=== PATIENT | male | born 1945 | race Caucasian/White ===

== ENCOUNTER 2020-05-12 08:04 | Outpatient (CLI) | payer OTHER, SELFPAY ==
--- NOTE | ~2020-05-12 | US_ITS ---
EXAMINATION: US right upper quadrant EXAM DATE: 05/12/2020 08:58 INDICATION: Abdominal pain. Pancreatitis. TECHNIQUE: Multiple grayscale and Doppler images of the abdomen right upper quadrant were obtained (b y a technologist who performed the scan) and subsequently reviewed. Comparison is made to prior exami nation from 06/27/2012. FINDINGS: Pancreas poorly visualized. Please note uncomplicated pancreatitis typically does not have ultrasound findings. The liver has normal echogenicity and contour. There are no focal liver lesions identifi ed. There is no evidence of intrahepatic biliary duct dilation. Portal venous flow was seen in the hepatopedal, normal direction and has normal Doppler waveform. No right-sided hydronephrosis. Common bile duct measures 4 mm, which is normal. The gallbladder wall is normal in thickness, with ex pected amount of distention. No sonographic evidence of pericholecystic fluid. There is no cholelit hiases. Technologist performing exam reports patient did not demonstrate sonographic Funes's sign. Please note that this sign is less reliable in patients who have received pain medication. IMPRESSION: 1. Unremarkable abdominal ultrasound exam. Reviewed, dictated and finalized at location A.
== END 2020-05-12 08:05 | disposition home or self-care (01) ==
LOC: ANHIMG 08:05
PROVIDERS: PCP Family Medicine; Visit Provider Physician Assistant
DX: R10.9 Unspecified abdominal pain (principal); R11.14 Bilious vomiting
CPT/HCPCS: 76705

== ENCOUNTER 2022-01-27 01:11 | Day surgery (SDC) | payer OTHER, SELFPAY ==
--- NOTE | 2022-01-26 14:46 | WPDANESEPPF ---
Anes - Initial Pre Proc Eval Procedure: Operation Date: 01/27/22 08:00 Proposed Procedures p Esophagogastroduodenoscopy - Noah Ruelas MD Date/Time: 01/26/22 14:46 Surgeon: Noah Ruelas MD Pre Op Diagnosis: vomiting Patient Data Age: 76 Gender: M Height: 1.8 m Weight: 97.8 kg Allergies Allergy/AdvReac Type Severity Reaction Status Date / Time lisinopril AdvReac Mild swelling Verified 01/27/22 06:55 ankles simvastatin AdvReac Mild swelling Verified 01/27/22 06:55 ankles Home Medications Medication Instructions Recorded Confirmed Type metoprolol succinate 25 mg 25 mg PO DAILY 08/01/19 01/13/22 History tablet,extended release 24 hr (Toprol XL) rosuvastatin 20 mg tablet (Crestor) 20 mg PO DAILY 08/01/19 01/13/22 History aspirin 81 mg tablet,delayed 243 mg PO DAILY 12/25/20 01/13/22 History release (Adult Low Dose Aspirin) irbesartan 300 mg tablet 300 mg PO DAILY #90 tabs 10/09/21 01/13/22 Rx levothyroxine 75 mcg tablet 75 mcg PO DAILY #90 tabs 10/09/21 01/13/22 Rx (Synthroid) triamcinolone acetonide 0.5 % 1 applic topical DAILY #15 grams 12/16/21 01/13/22 Rx topical cream Patient hx anesthesia problems: none Family hx anesthesia problems: none Results Review: All pre-operative results and documents have been reviewed as part of the pre-operative evaluation. 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, with stage 1 through stage 4 chronic kidney disease, or unspecified chronic kidney disease PVD (peripheral vascular disease) Surgical History Surgical History (Updated 01/26/22 @ 14:48 by Amrik Ramirez MD) Hx of CABG Family History Family History Father Patient's father is in good health, Onset Age: 74 Sibling Patient's sister is in good health, Onset Age: 65 Patient's brother is in good health, Onset Age: 67 Mother Patient's mother is Other Family history of cardiovascular disease Hypertension Social History Social History (Updated 12/16/21 @ 15:03 by Ginna Price) Social History: Smoking status: Never smoker Second hand tobacco smoke exposure: No Alcohol intake: current Drinks per week: 1 Alcohol use details: 6oz whiskey daily Substance use: never Substance use type: does not use Living arrangements: with family Gender identity (if verbalized by the patient): Male Sexual Orientation (if Verbalized by the Patient): Straight or Heterosexual Spiritual care concerns: No Anes - Eval Final PreProcedure Day of Procedure 01/26/22 14:46 Patient weight: obese Heart: regular rate and rhythm Lungs: clear to auscultation and normal air movement Airway: Mallampati scale class II Neurological: alert and oriented Last oral intake: >/= 8 hours ASA classification: IV Emergent: no Anesthetic plan: proceed Anesthesia type and monitoring: general GIVS Results Review: All pre-operative results and documents have been reviewed as part of the pre-operative evaluation. Informed Consent: The patient's anesthetic plan and its attendant risks and benefits were discussed with the patient/family/POA. Questions were solicited and answers provided to the satisfaction of the patient/family/POA.
[2022-01-27 06:57] VITALS: BP 162/71; PULSE 62; RESP 17; TEMP 36.6; O2SAT 99
[2022-01-27] MEDS: LACTATED RINGERS 1,000 ML 150 ML IV CONT (07:15)
--- NOTE | 2022-01-27 07:28 | PM.HPGS ---
History of Present Illness History of Present Illness Consent: Risks, benefits, and alternatives have been discussed and questions answered. Patient agrees to proceed with procedure. Chief complaint: vomiting Narrative: Casey Frederick is a 76 year old male was referred for investigation of recurrent nausea vomiting. He refers to as a cyclic vomiting. He states that he will be eating and get nauseated. He will need to get up, walk around , and he may regurgitate or vomit something. Then he can go e Back to eating. this mostly happens when he is eating bread or meat. His daughter wondered if it might be pancreatitis coming back because he has been having a good great deal of back pain for which he takes ibuprofen from time to time; he had acute pancreatitis about 10 years ago. 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, with stage 1 through stage 4 chronic kidney disease, or unspecified chronic kidney disease PVD (peripheral vascular disease) Surgical History Surgical History Hx of CABG Family History Family History Father Patient's father is in good health, Onset Age: 74 Sibling Patient's sister is in good health, Onset Age: 65 Patient's brother is in good health, Onset Age: 67 Mother Patient's mother is Other Family history of cardiovascular disease Hypertension Social History Social History Social History: Smoking status: Never smoker Second hand tobacco smoke exposure: No Alcohol intake: current Drinks per week: 1 Alcohol use details: 6oz whiskey daily Substance use: never Substance use type: does not use Living arrangements: with family Gender identity (if verbalized by the patient): Male Sexual Orientation (if Verbalized by the Patient): Straight or Heterosexual Spiritual care concerns: No Meds Home Medications and Allergies Home Medications Medication Instructions Recorded Confirmed Type metoprolol succinate 25 mg 25 mg PO DAILY 08/01/19 01/13/22 History tablet,extended release 24 hr (Toprol XL) rosuvastatin 20 mg tablet (Crestor) 20 mg PO DAILY 08/01/19 01/13/22 History aspirin 81 mg tablet,delayed 243 mg PO DAILY 12/25/20 01/13/22 History release (Adult Low Dose Aspirin) irbesartan 300 mg tablet 300 mg PO DAILY #90 tabs 10/09/21 01/13/22 Rx levothyroxine 75 mcg tablet 75 mcg PO DAILY #90 tabs 10/09/21 01/13/22 Rx (Synthroid) triamcinolone acetonide 0.5 % 1 applic topical DAILY #15 grams 12/16/21 01/13/22 Rx topical cream Allergies Allergy/AdvReac Type Severity Reaction Status Date / Time lisinopril AdvReac Mild swelling Verified 01/27/22 06:55 ankles simvastatin AdvReac Mild swelling Verified 01/27/22 06:55 ankles Vital Signs Vital Signs - 24 hr 01/27/22 06:57 Temperature 36.6 C Pulse Rate 62 Respiratory Rate 17 Blood Pressure 162/71 H Pulse Oximetry 99 Oxygen Delivery Room Air Exam Const: General: alert Orientation/consciousness: patient oriented x3 Resp: Auscultation: clear to auscultation bilaterally Cardio: Rhythm: regular rhythm GI: GI Palp: Yes Soft to palpation and No Tenderness to palpation present (GI) Neuro: General: patient orient
[2022-01-27] MEDS: BENZOCAINE (*SP) 60 ML SPRAY CAN (HURRICAINE) 1 SPRAY MUCOUS MEM (08:01)
[2022-01-27 08:10] VITALS: BP 90/41; PULSE 55; RESP 18; O2SAT 96
[2022-01-27 08:20] VITALS: BP 99/46; PULSE 55; RESP 16; O2SAT 97
[2022-01-27 08:30] VITALS: BP 120/69; PULSE 51; RESP 16; O2SAT 95
== END 2022-01-27 08:45 | disposition home or self-care (01) ==
PROVIDERS: PCP Family Medicine; Visit Provider Internal Medicine Gastroenterology
PROC: 0DJ08ZZ Inspection of Upper Intestinal Tract, Via Natural or Artificial Opening Endoscopic (ICD-10-PCS; CPT 43235; principal; 2022-01-27 08:00)
DX: K22.2 Esophageal obstruction (principal); K21.00 Gastro-esophageal reflux disease with esophagitis, without bleeding; K44.9 Diaphragmatic hernia without obstruction or gangrene; I71.4 Abdominal aortic aneurysm, without rupture; E03.9 Hypothyroidism, unspecified; I12.9 Hypertensive chronic kidney disease with stage 1 through stage 4 chronic kidney disease, or unspecified chronic kidney disease; N18.30 Chronic kidney disease, stage 3 unspecified; I25.10 Atherosclerotic heart disease of native coronary artery without angina pectoris; I73.9 Peripheral vascular disease, unspecified; Z86.73 Personal history of transient ischemic attack (TIA), and cerebral infarction without residual deficits; Z95.1 Presence of aortocoronary bypass graft; Z79.82 Long term (current) use of aspirin; E66.9 Obesity, unspecified; Z68.29 Body mass index [BMI] 29.0-29.9, adult
CPT/HCPCS: 43249; 88305; C1726; J2704; J7120

== ENCOUNTER 2022-04-07 00:36 | Day surgery (SDC) | payer OTHER, SELFPAY ==
[2022-03-29 11:29] VITALS: BMI 28.6
--- NOTE | 2022-04-06 17:26 | PM.HPGS ---
History of Present Illness History of Present Illness Consent: Risks, benefits, and alternatives have been discussed and questions answered. Patient agrees to proceed with procedure. Chief complaint: esophagitis, esophageal stricture Narrative: Casey Frederick is a 76 year old male Who few months ago was found have grade 4 esophagitis and a high-grade stricture which could only be dilated up to 13.5 mm at the time. 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, with stage 1 through stage 4 chronic kidney disease, or unspecified chronic kidney disease PVD (peripheral vascular disease) Surgical History Surgical History Hx of CABG Family History Family History Father Patient's father is in good health, Onset Age: 74 Sibling Patient's sister is in good health, Onset Age: 65 Patient's brother is in good health, Onset Age: 67 Mother Patient's mother is Other Family history of cardiovascular disease Hypertension Social History Social History Social History: Smoking status: Never smoker Second hand tobacco smoke exposure: No Alcohol intake: former Drinks per week: 1 Alcohol use details: previously drank whiskey daily, recently stopped Substance use: never Substance use type: does not use Living arrangements: with family Gender identity (if verbalized by the patient): Male Sexual Orientation (if Verbalized by the Patient): Straight or Heterosexual Spiritual care concerns: No Meds Home Medications and Allergies Home Medications Medication Instructions Recorded Confirmed Type metoprolol succinate 25 mg 25 mg PO DAILY 08/01/19 04/07/22 History tablet,extended release 24 hr (Toprol XL) rosuvastatin 20 mg tablet (Crestor) 20 mg PO DAILY 08/01/19 04/07/22 History aspirin 81 mg tablet,delayed 81 mg PO DAILY 12/25/20 04/07/22 History release (Adult Low Dose Aspirin) pantoprazole 40 mg tablet,delayed 40 mg PO QAM #30 tabs 01/27/22 04/07/22 Rx release levothyroxine 75 mcg tablet 75 mcg PO DAILY #90 tabs 03/29/22 04/07/22 Rx (Synthroid) irbesartan 300 mg tablet See Rx Instructions .Route 03/31/22 04/07/22 Rx .COMPLEX #90 tabs Allergies Allergy/AdvReac Type Severity Reaction Status Date / Time lisinopril AdvReac Mild swelling Verified 04/07/22 08:51 ankles simvastatin AdvReac Mild swelling Verified 04/07/22 08:51 ankles Exam Const: General: alert Orientation/consciousness: patient oriented x3 Resp: Auscultation: clear to auscultation bilaterally Cardio: Rhythm: regular rhythm GI: GI Palp: Yes Soft to palpation and No Tenderness to palpation present (GI) Neuro: General: patient oriented x3 Assessment and Plan Assessment and plan (1) Esophageal stricture: Code(s): K22.2 - Esophageal obstruction Status: Acute Assessment and Plan: EGD with possible biopsy or dilatation or cautery.
[2022-04-07 08:53] VITALS: BP 165/85; PULSE 48; RESP 20; TEMP 36.5; O2SAT 100
[2022-04-07] MEDS: LACTATED RINGERS 1,000 ML 150 ML IV CONT (09:03)
--- NOTE | 2022-04-07 09:41 | WPDANESEPPF ---
Anes - Initial Pre Proc Eval Procedure: Operation Date: 04/07/22 10:00 Proposed Procedures p Esophagogastroduodenoscopy - Noah Ruelas MD Date/Time: 04/07/22 09:41 Surgeon: Noah Ruelas MD Pre Op Diagnosis: esophagitis, esophageal stricture Patient Data Age: 76 Gender: M Height: 1.8 m Weight: 94 kg Last Vital Signs Temp 97.7 F 04/07/22 08:53 Pulse 48 L 04/07/22 08:53 Resp 20 04/07/22 08:53 BP 165/85 H 04/07/22 08:53 Pulse Ox 100 04/07/22 08:53 O2 Del Method Room Air 04/07/22 08:53 Allergies Allergy/AdvReac Type Severity Reaction Status Date / Time lisinopril AdvReac Mild swelling Verified 04/07/22 08:51 ankles simvastatin AdvReac Mild swelling Verified 04/07/22 08:51 ankles Home Medications Medication Instructions Recorded Confirmed Type metoprolol succinate 25 mg 25 mg PO DAILY 08/01/19 04/07/22 History tablet,extended release 24 hr (Toprol XL) rosuvastatin 20 mg tablet (Crestor) 20 mg PO DAILY 08/01/19 04/07/22 History aspirin 81 mg tablet,delayed 81 mg PO DAILY 12/25/20 04/07/22 History release (Adult Low Dose Aspirin) pantoprazole 40 mg tablet,delayed 40 mg PO QAM #30 tabs 01/27/22 04/07/22 Rx release levothyroxine 75 mcg tablet 75 mcg PO DAILY #90 tabs 03/29/22 04/07/22 Rx (Synthroid) irbesartan 300 mg tablet See Rx Instructions .Route 03/31/22 04/07/22 Rx .COMPLEX #90 tabs Patient hx anesthesia problems: none Family hx anesthesia problems: none Results Review: All pre-operative results and documents have been reviewed as part of the pre-operative evaluation. 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, with stage 1 through stage 4 chronic kidney disease, or unspecified chronic kidney disease PVD (peripheral vascular disease) Surgical History Surgical History Hx of CABG Family History Family History Father Patient's father is in good health, Onset Age: 74 Sibling Patient's sister is in good health, Onset Age: 65 Patient's brother is in good health, Onset Age: 67 Mother Patient's mother is Other Family history of cardiovascular disease Hypertension Social History Social History Social History: Smoking status: Never smoker Second hand tobacco smoke exposure: No Alcohol intake: former Drinks per week: 1 Alcohol use details: previously drank whiskey daily, recently stopped Substance use: never Substance use type: does not use Living arrangements: with family Gender identity (if verbalized by the patient): Male Sexual Orientation (if Verbalized by the Patient): Straight or Heterosexual Spiritual care concerns: No Anes - Eval Final PreProcedure Day of Procedure 04/07/22 09:41 Patient weight: normal Heart: regular rate and rhythm Lungs: clear to auscultation Airway: Mallampati scale class II Neurological: alert and oriented Last oral intake: >/= 8 hours ASA classification: III Emergent: no Anesthetic plan: proceed Anesthesia type and monitoring: general GIVS and standard monitoring Results Review: All pre-operative results and documents have been reviewed as part of the pre-operative evaluation. Informed Consent: The patient's anesthetic plan and its attendant risks and benefits were discussed with the patient/family/POADonell Mooney
[2022-04-07 10:05] VITALS: BP 126/68; PULSE 45; RESP 15; O2SAT 100
[2022-04-07 10:15] VITALS: BP 125/67; PULSE 47; RESP 17; O2SAT 99
[2022-04-07 10:25] VITALS: BP 143/73; PULSE 47; RESP 17; O2SAT 99
== END 2022-04-07 10:44 | disposition home or self-care (01) ==
PROVIDERS: PCP Family Medicine; Visit Provider Internal Medicine Gastroenterology
PROC: 0DJ08ZZ Inspection of Upper Intestinal Tract, Via Natural or Artificial Opening Endoscopic (ICD-10-PCS; CPT 43235; principal; 2022-04-07 10:00)
DX: R13.19 Other dysphagia (principal); K22.2 Esophageal obstruction; K44.9 Diaphragmatic hernia without obstruction or gangrene; K20.90 Esophagitis, unspecified without bleeding; E03.9 Hypothyroidism, unspecified; Z79.82 Long term (current) use of aspirin; I71.4 Abdominal aortic aneurysm, without rupture; Z95.1 Presence of aortocoronary bypass graft; I25.10 Atherosclerotic heart disease of native coronary artery without angina pectoris; Z86.73 Personal history of transient ischemic attack (TIA), and cerebral infarction without residual deficits; I73.9 Peripheral vascular disease, unspecified; I12.9 Hypertensive chronic kidney disease with stage 1 through stage 4 chronic kidney disease, or unspecified chronic kidney disease; N18.31 Chronic kidney disease, stage 3a; E03.8 Other specified hypothyroidism
CPT/HCPCS: 43239; C1726; J2001; J2704; J7120

== ENCOUNTER 2023-03-18 03:45 | Day surgery (SDC) | payer OTHER, SELFPAY ==
--- NOTE | 2023-03-17 17:36 | PM.HPGS ---
History of Present Illness History of Present Illness Consent: Risks, benefits, and alternatives have been discussed and questions answered. Patient agrees to proceed with procedure. Chief complaint: neoplasm screening Narrative: Casey Frederick is a 77 year old male Who was referred for colon cancer screening. He had an adenomatous polyp removed about 6 years ago. 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, with stage 1 through stage 4 chronic kidney disease, or unspecified chronic kidney disease PVD (peripheral vascular disease) Surgical History Surgical History Hx of CABG Family History Family History Father Patient's father is in good health, Onset Age: 74 Sibling Patient's sister is in good health, Onset Age: 65 Patient's brother is in good health, Onset Age: 67 Mother Patient's mother is Other Family history of cardiovascular disease Hypertension Social History Social History Social History: Smoking status: Never smoker Second hand tobacco smoke exposure: No Alcohol intake: current Drinks per week: 7 Alcohol use details: SHOTS FOR SLEEP Substance use: never Substance use type: does not use Living arrangements: with family Occupation/Education: retired Gender identity (if verbalized by the patient): Male Sexual Orientation (if Verbalized by the Patient): Straight or Heterosexual Spiritual care concerns: No Meds Home Medications and Allergies Home Medications Medication Instructions Recorded Confirmed Type metoprolol succinate 25 mg 25 mg PO DAILY 08/01/19 03/09/23 History tablet,extended release 24 hr (Toprol XL) aspirin 81 mg tablet,delayed 81 mg PO DAILY 12/25/20 03/09/23 History release (Adult Low Dose Aspirin) epinephrine 0.3 mg/0.3 mL 0.3 mg (0.3 mL) IM ONCE PRN 04/20/22 03/09/23 Rx injection, auto-injector (EpiPen anaphylaxis #2 ea 2-Nabeel) pantoprazole 40 mg tablet,delayed 40 mg PO QAM #90 tabs 07/26/22 03/09/23 Rx release levothyroxine 75 mcg tablet 75 mcg PO DAILY #90 tabs 10/06/22 03/09/23 Rx (Synthroid) irbesartan 300 mg tablet See Rx Instructions .Route 12/22/22 03/09/23 Rx .COMPLEX #90 tabs hydrochlorothiazide 12.5 mg tablet 12.5 mg PO DAILY #30 tabs 01/06/23 03/09/23 Rx Pomegranate 1 cap PO DAILY 03/09/23 03/09/23 History Vinpocetine 10 mg PO DAILY 03/09/23 03/09/23 History cholecalciferol (vitamin D3) 25 25 mcg PO DAILY 03/09/23 03/09/23 History mcg (1,000 unit) capsule (Vitamin D3) coQ10 (ubiquinol) 100 mg capsule 100 mg PO DAILY 03/09/23 03/09/23 History magnesium 100 mg capsule 100 mg PO DAILY 03/09/23 03/09/23 History melatonin 3 mg tablet 6 mg PO HS 03/09/23 03/09/23 History taurine 1,000 mg capsule 1,000 mg PO DAILY 03/09/23 03/09/23 History turmeric root extract 1,053 mg 1,076 mg PO ONCE 03/09/23 03/09/23 History tablet vitamin B complex 1 cap PO DAILY 03/09/23 03/09/23 History vitamin K2 45 mcg capsule 45 mcg PO DAILY 03/09/23 03/09/23 History Allergies Allergy/AdvReac Type Severity Reaction Status Date / Time lisinopril AdvReac Mild swelling Verified 03/09/23 09:03 ankles simvastatin AdvReac Mild swelling Verified 03/09/23 09:03 an
[2023-03-18 08:03] VITALS: BP 130/82; PULSE 65; RESP 18; TEMP 36.6; O2SAT 100
[2023-03-18] MEDS: LACTATED RINGERS 1,000 ML 150 ML IV CONT (08:30)
--- NOTE | 2023-03-18 08:43 | WPDANESEPPF ---
Anes - Initial Pre Proc Eval Procedure: Operation Date: 03/18/23 09:00 Proposed Procedures p Screening Colonoscopy - Noah Ruelas MD Date/Time: 03/18/23 08:43 Surgeon: Noah Ruelas MD Pre Op Diagnosis: neoplasm screening Patient Data Age: 77 Gender: M Height: 1.8 m Weight: 98.3 kg Last Vital Signs Temp 97.9 F 03/18/23 08:03 Pulse 65 03/18/23 08:03 Resp 18 03/18/23 08:03 BP 130/82 03/18/23 08:03 Pulse Ox 100 03/18/23 08:03 O2 Del Method Room Air 03/18/23 08:03 Allergies Allergy/AdvReac Type Severity Reaction Status Date / Time lisinopril AdvReac Mild swelling Verified 03/18/23 08:32 ankles simvastatin AdvReac Mild swelling Verified 03/18/23 08:32 ankles amlodipine AdvReac Swelling Verified 03/18/23 08:32 Home Medications Medication Instructions Recorded Confirmed Type metoprolol succinate 25 mg 25 mg PO DAILY 08/01/19 03/18/23 History tablet,extended release 24 hr (Toprol XL) aspirin 81 mg tablet,delayed 81 mg PO DAILY 12/25/20 03/18/23 History release (Adult Low Dose Aspirin) epinephrine 0.3 mg/0.3 mL 0.3 mg (0.3 mL) IM ONCE PRN 04/20/22 03/18/23 Rx injection, auto-injector (EpiPen anaphylaxis #2 ea 2-Nabeel) pantoprazole 40 mg tablet,delayed 40 mg PO QAM #90 tabs 07/26/22 03/18/23 Rx release levothyroxine 75 mcg tablet 75 mcg PO DAILY #90 tabs 10/06/22 03/18/23 Rx (Synthroid) irbesartan 300 mg tablet See Rx Instructions .Route 12/22/22 03/18/23 Rx .COMPLEX #90 tabs hydrochlorothiazide 12.5 mg tablet 12.5 mg PO DAILY #30 tabs 01/06/23 03/18/23 Rx Pomegranate 1 cap PO DAILY 03/09/23 03/18/23 History Vinpocetine 10 mg PO DAILY 03/09/23 03/18/23 History cholecalciferol (vitamin D3) 25 25 mcg PO DAILY 03/09/23 03/18/23 History mcg (1,000 unit) capsule (Vitamin D3) coQ10 (ubiquinol) 100 mg capsule 100 mg PO DAILY 03/09/23 03/18/23 History magnesium 100 mg capsule 100 mg PO DAILY 03/09/23 03/18/23 History melatonin 3 mg tablet 6 mg PO HS 03/09/23 03/18/23 History taurine 1,000 mg capsule 1,000 mg PO DAILY 03/09/23 03/18/23 History turmeric root extract 1,053 mg 1,076 mg PO ONCE 03/09/23 03/18/23 History tablet vitamin B complex 1 cap PO DAILY 03/09/23 03/18/23 History vitamin K2 45 mcg capsule 45 mcg PO DAILY 03/09/23 03/18/23 History Patient hx anesthesia problems: none Family hx anesthesia problems: none Results Review: All pre-operative results and documents have been reviewed as part of the pre-operative evaluation. [facility] Past Medical History Medical History Abdominal aortic aneurysm (AAA) without rupture Acquired hypothyroidism Atherosclerosis of [place] coronary artery of [place] heart without angina pectoris Chronic kidney disease, stage 3a Chronic kidney disease, stage III (moderate) H/O TIA (transient ischemic attack) and stroke History of colon polyps History of vertebral artery stenosis Hypertensive heart and chronic kidney disease without heart failure, with stage 1 through stage 4 chronic kidney disease, or unspecified chronic kidney disease PVD (peripheral vascular disease) Surgical History Surgical History Hx of CABG Family History Family History Father Patient's father is in good health, Onset Age: 74 Sibling Patient's sister is in good health, Onset Age: 65 Patient's brother is in good health, Onset Age: 67 Mother Patient's mother is Other Family history of cardiovascular disease Hypertension Social History Social History Social History: Smoking status: Never smoker Second hand tobacco smoke exposure: No Alcohol intake: current Drinks per week: 7 Alcohol use details: SHOTS FOR SLEEP Substance use: never Substance use ty
[2023-03-18 09:02] VITALS: BP 110/59; PULSE 58; RESP 18; O2SAT 98
[2023-03-18 09:12] VITALS: BP 108/63; PULSE 56; RESP 18; O2SAT 98
[2023-03-18 09:22] VITALS: BP 122/68; PULSE 58; RESP 20; O2SAT 99
== END 2023-03-18 09:32 | disposition home or self-care (01) ==
PROVIDERS: PCP Family Medicine; Visit Provider Internal Medicine Gastroenterology
PROC: 0DJD8ZZ Inspection of Lower Intestinal Tract, Via Natural or Artificial Opening Endoscopic (ICD-10-PCS; CPT 45378; principal; 2023-03-18 09:00)
DX: Z12.11 Encounter for screening for malignant neoplasm of colon (principal); K57.30 Diverticulosis of large intestine without perforation or abscess without bleeding; K64.8 Other hemorrhoids; Z86.010 Personal history of colon polyps; I12.9 Hypertensive chronic kidney disease with stage 1 through stage 4 chronic kidney disease, or unspecified chronic kidney disease; N18.31 Chronic kidney disease, stage 3a; I71.40 Abdominal aortic aneurysm, without rupture, unspecified; I25.10 Atherosclerotic heart disease of native coronary artery without angina pectoris; I73.9 Peripheral vascular disease, unspecified; Z86.73 Personal history of transient ischemic attack (TIA), and cerebral infarction without residual deficits; Z79.82 Long term (current) use of aspirin; Z95.1 Presence of aortocoronary bypass graft; E66.9 Obesity, unspecified; Z68.30 Body mass index [BMI] 30.0-30.9, adult
CPT/HCPCS: G0105; J2704; J7120

== ENCOUNTER 2023-04-15 16:44 | Emergency (ER) | payer OTHER, SELFPAY ==
--- NOTE | ~2023-04-15 | CT_ITS ---
EXAMINATION: CTA brain carotid DATE: 04/15/2023 17:02 INDICATION: Aphasia. Left arm weakness. TECHNIQUE: Computed tomographic angiography (CTA) of the head was performed with 100 mL Omnipaque-350 intravenous contrast. CTA of the neck was performed with intravenous contrast. Automated exposure co ntrol and iterative reconstruction technique were employed. The dose-length product was 1238.24 mGy-c m. Maximum intensity projection and volume rendered 3D-reconstructions were created by the ritesh lopez on a separate workstation. COMPARISON: Head CT 04/15/2023, CT 06/11/2015 FINDINGS: HEAD CTA: There are scattered areas of low attenuation in the cerebral white matter. There is no intr acranial hemorrhage, acute infarction, or abnormal intracranial mass lesion. The ventricles are davey l in size. There is mild mucosal thickening in the paranasal sinuses. The orbits are normal. The mast oid air cells are normal. Right vertebral artery is dominant. There is moderate stenosis of distal le ft vertebral artery. There is widespread atherosclerosis of the intracranial arteries. There is no si gnificant stenosis of basilar artery or the posterior cerebral arteries. There is no significant sten osis of the intracranial internal carotid arteries or anterior cerebral arteries. There is moderate s tenosis of right M2 middle cerebral artery. Anterior communicating artery is normal. The posterior co mmunicator arteries are patent. There is no aneurysm. NECK CTA: There are no pathologically enlarged lymph nodes. There is no significant stenosis of the c ervical vertebral arteries. There is plaque in the proximal internal carotid arteries. There is 0% st enosis of the proximal right internal carotid artery relative to normal distal artery lumen diameter (NASCET criteria). There is 7% stenosis of the proximal left internal carotid artery relative to norm al distal artery lumen diameter. There is severe cervical spondylosis. IMPRESSION: 1. Extensive nonspecific cerebral white matter disease, which likely represents chronic small vessel ischemic disease. 2. Moderate stenosis of distal left vertebral artery. 3. Moderate stenosis of right M2 middle cerebral artery. 4. 0% stenosis of the proximal right internal carotid artery relative to normal distal artery lumen d iameter (NASCET criteria). 5. 7% stenosis of the proximal left internal carotid artery relative to normal distal artery lumen di ameter. Reviewed, dictated and finalized at location E. IMPRESSION: 1. Extensive nonspecific cerebral white matter disease, which likely represents chronic small vessel ischemic disease. 2. Moderate stenosis of distal left vertebral artery. 3. Moderate stenosis of right M2 middle cerebral artery. 4. 0% stenosis of the proximal right internal carotid artery relative to normal distal artery lumen diameter (NASCET criteria). 5. 7% stenosis of the proximal left internal carotid artery relative to normal distal artery lumen diameter.
--- NOTE | ~2023-04-15 | XR_ITS ---
EXAMINATION: XR chest 1V portable DATE: 04/15/2023 17:58 INDICATION: Aphasia. TECHNIQUE: A single frontal view of the chest was obtained. COMPARISON: Chest 2 views 10/26/16 FINDINGS: There is a diffuse interstitial pattern, consistent mild pulmonary edema. No pleural effusi on or pneumothorax. Cardiomegaly is noted. Median sternotomy wires and mediastinal surgical clips are seen, likely from prior coronary artery bypass grafting. IMPRESSION: 1. Mild pulmonary edema. 2. Cardiomegaly. Reviewed, dictated and finalized at location E.
--- NOTE | ~2023-04-15 | CT_ITS ---
EXAMINATION: CT brain wo con INDICATION: Aphasia, left arm weakness COMPARISON: 06/11/2015 TECHNIQUE: Standard unenhanced head CT. The dose-length product (DLP) was 605.33 mGy-cm. The mA was a djusted according to patient size. Iterative reconstruction technique was employed. FINDINGS: No acute intraparenchymal hemorrhage. No evidence of mass lesion. No evidence of acute infa rction. There is moderate periventricular and subcortical hypodensity probably related to small vesse l ischemic disease. There is mild prominence of the sulci and ventricles related to cerebral atrophy. Intracranial calcified cerebral atherosclerosis is noted. No extra-axial collections. No mass effect or midline shift. The orbits and soft tissues are unremarkable. The visualized sinuses and mastoid a ir cells are well aerated. IMPRESSION: 1. No acute intracranial abnormality. 2. Age related findings. Reviewed, dictated and finalized at location B.
[2023-04-15 16:50] LABS: Glucose Point of Care 109 mg/dl (65-105)
--- NOTE | 2023-04-15 16:52 | ECG_ITS ---
Measurements Intervals [place] Rate: 67 P: 60 [place]: 195 QRS: -6 QRSD: 93 T: 52 QT: 398 QTc: 421 Interpretive Statements SINUS RHYTHM BORDERLINE ST ABNORMALITY- HIGH LATERAL LEADS BASELINE ARTIFACT- I, II, III, AVR, AVL, AVF, V4-V5 BORDERLINE ECG NO PREVIOUS ECG AVAILABLE FOR COMPARISON Electronically Signed On 04-15-2023 20:15:06 CDT by Koko Sheriff D.O.
--- NOTE | 2023-04-15 16:53 | ED.NEUROSD ---
HPI - Neuro Symptoms/Deficit General Chief Complaint: Suspected CVA Stated Complaint: left side weakness, confusion Time Seen by Provider: 04/15/23 16:51 History of Present Illness HPI Narrative: This is a 77-year-old male, past history of coronary artery disease, brought in by his with concern for stroke. The patient notes at approximately 1130 today, the patient developed slurred speech and left arm weakness. This overall seems to have improved. She notes the patient underwent a biopsy approximately 1 week ago that was concerning for prostate malignancy Related Data Home Medications Medication Instructions Recorded Confirmed metoprolol succinate 25 mg 25 mg PO DAILY 08/01/19 03/18/23 tablet,extended release 24 hr (Toprol XL) aspirin 81 mg tablet,delayed 81 mg PO DAILY 12/25/20 03/18/23 release (Adult Low Dose Aspirin) Pomegranate 1 cap PO DAILY 03/09/23 03/18/23 Vinpocetine 10 mg PO DAILY 03/09/23 03/18/23 cholecalciferol (vitamin D3) 25 25 mcg PO DAILY 03/09/23 03/18/23 mcg (1,000 unit) capsule (Vitamin D3) coQ10 (ubiquinol) 100 mg capsule 100 mg PO DAILY 03/09/23 03/18/23 magnesium 100 mg capsule 100 mg PO DAILY 03/09/23 03/18/23 melatonin 3 mg tablet 6 mg PO HS 03/09/23 03/18/23 taurine 1,000 mg capsule 1,000 mg PO DAILY 03/09/23 03/18/23 turmeric root extract 1,053 mg 1,076 mg PO ONCE 03/09/23 03/18/23 tablet vitamin B complex 1 cap PO DAILY 03/09/23 03/18/23 vitamin K2 45 mcg capsule 45 mcg PO DAILY 03/09/23 03/18/23 Allergies Allergy/AdvReac Type Severity Reaction Status Date / Time lisinopril AdvReac Mild swelling Verified 03/18/23 08:32 ankles simvastatin AdvReac Mild swelling Verified 03/18/23 08:32 ankles amlodipine AdvReac Swelling Verified 03/18/23 08:32 Review of Systems Review of Systems: Review of systems limited due to acuity of illness CONSTITUTIONAL: Denies fever, chills, or sweats. CARDIOVASCULAR: Denies chest pain, palpitations, or edema. RESPIRATORY: Denies cough or dyspnea. GASTROINTESTINAL: Denies abdominal pain, nausea, vomiting, or diarrhea. NEUROLOGIC: Intermittent left arm and leg weakness, intermittent slurred speech denies headache, numbness, dizziness PSYCHIATRIC: Denies anxiety or depression. 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, with stage 1 through stage 4 chronic kidney disease, or unspecified chronic kidney disease PVD (peripheral vascular disease) Surgical History Surgical History Hx of CABG Family History Family History Father Patient's father is in good health, Onset Age: 74 Sibling Patient's sister is in good health, Onset Age: 65 Patient's brother is in good health, Onset Age: 67 Mother Patient's mother is Other Family history of cardiovascular disease Hypertension Social History Social History Social History: Smoking status: Never smoker Second hand tobacco smoke exposure: No Alcohol intake: current Drinks per week: 7 Alcohol use details: SHOTS FOR SLEEP Substance use: never Substance use type: does not use Living arrangements: with family Occupation/Education: retired Gender identity (if verbalized by the patient): Male Sexual Orientation (if Verbalized by the Patient): Straight or Heterosexual Spiritual care concerns: N
[2023-04-15 16:57] LABS: Estimated Glomerular Filt Rate 39
[2023-04-15 17:07] VITALS: BP 155/127; PULSE 60; RESP 17; TEMP 36.6; O2SAT 98
[2023-04-15 17:09] LABS: Basophils Absolute Auto 0.1 K/mm3 (0.0-0.1); Basophils Percent Auto 0.6 % (0.2-1.2); Eosinophils Absolute Auto 0.2 K/mm3 (0-0.3); Eosinophils Percent Auto 2.2 % (0-4.4); Hematocrit 40.2 % (42.0-52.0); Hemoglobin 13.7 g/dL (14.0-18.0); Immature Granulocyte Absolute 0.07 K/mm3 (0.00-0.031); Immature Granulocyte Percent A 0.7 % (0-0.5); Lymphocytes Percent Auto 18.3 % (18.3-44.2); Mean Corpuscular HGB Conc 34.1 g/dl (32-36); Monocytes Absolute Auto 1.5 K/mm3 (0.1-0.6); Monocytes Percent Auto 15.1 % (2.6-8.5); Neutrophils Absolute Auto 6.2 K/mm3 (1.3-6.7); Neutrophils Percent Auto 63.1 % (45.5-73.1); Platelet Count Result 274 k/mm3 (150-375); Red Blood Count 4.57 M/mm3 (4.6-6.20); Red Cell Distribution Width 13.2 % (11.5-14.5); White Blood Count 9.8 K/mm3 (4.5-10.0)
[2023-04-15 17:12] LABS: Alanine Aminotransferase 20 U/L (6-50); Albumin Level 4.1 g/dL (3.5-5.1); Alkaline Phosphatase 52 U/L (38-126); Anion Gap 9 mmol/L (8-16); Aspartate Amino Transferase 29 U/L (17-59); Bilirubin,Total 0.5 mg/dL (0.2-1.3); Blood Urea Nitrogen 32 mg/dL (9-20); Calcium 9.2 mg/dL (8.4-10.2); Carbon Dioxide 27 mmol/L (22-30); Chloride 96 mmol/L (98-107); Estimated Glomerular Filt Rate 49; Glucose 101 mg/dL (65-110); Prothrombin Time 13.9 Seconds (11.1-14.7); Sodium 132 mmol/L (137-145)
[2023-04-15 17:13] LABS: Partial Thromboplastin Time 28.5 SECONDS (22.3-36.8)
[2023-04-15 17:23] LABS: Troponin I < 0.012 ng/mL (0.000-0.034)
--- NOTE | 2023-04-15 17:25 | PC.NURSE ---
Pt had episode of garbled speech and left side ataxia, Dr. Macdonald to Bedside
[2023-04-15 17:30] VITALS: O2SAT 97
[2023-04-15 17:31] VITALS: BP 166/75; O2SAT 96
[2023-04-15 17:33] LABS: Ethanol < 10 mg/dL (<10)
[2023-04-15 17:45] VITALS: PULSE 62; RESP 18; O2SAT 95
[2023-04-15 17:47] VITALS: BP 150/71; PULSE 56; RESP 16; O2SAT 96
[2023-04-15 18:02] VITALS: BP 151/72; PULSE 58; RESP 18; O2SAT 100
[2023-04-15] MEDS: CLOPIDOGREL BISULFATE 300 MG TABLET PO (18:05)
== END 2023-04-15 18:08 | disposition short-term general hospital (02) ==
PROVIDERS: Emergency Provider Preventive Medicine Aerospace Medicine; PCP Family Medicine
DX: R53.1 Weakness (principal); R47.01 Aphasia; I25.10 Atherosclerotic heart disease of native coronary artery without angina pectoris; I73.9 Peripheral vascular disease, unspecified; I12.9 Hypertensive chronic kidney disease with stage 1 through stage 4 chronic kidney disease, or unspecified chronic kidney disease; N18.31 Chronic kidney disease, stage 3a; E03.9 Hypothyroidism, unspecified; Z95.1 Presence of aortocoronary bypass graft; Z86.73 Personal history of transient ischemic attack (TIA), and cerebral infarction without residual deficits; Z86.010 Personal history of colon polyps; Z79.82 Long term (current) use of aspirin; Z79.899 Other long term (current) drug therapy; R94.31 Abnormal electrocardiogram [ECG] [EKG]; R90.82 White matter disease, unspecified; I65.02 Occlusion and stenosis of left vertebral artery; I66.01 Occlusion and stenosis of right middle cerebral artery
CPT/HCPCS: 70450; 70496; 70498; 71045; 80053; 80307; 82948; 84484; 85025; 85610; 85730; 93005; 99285; A9270; Q9967

== ENCOUNTER 2023-06-02 07:54 | Emergency (ER) | payer OTHER, SELFPAY ==
[2023-06-02] VITALS (9 sets, daily range): BP systolic 143–157; BP diastolic 72–84; PULSE 80–90; RESP 18; TEMP 36.4; O2SAT 96–100
--- NOTE | ~2023-06-02 | CT_ITS ---
EXAMINATION: CTA chest PE abdomen pel DATE: 06/02/2023 10:33 INDICATION: Vomiting blood. TECHNIQUE: Computed tomography (CT) pulmonary angiogram of the chest was performed with 100 mL Omnipa que-350 intravenous contrast. Additional 3D reconstructions utilizing coronal maximum intensity proje ction (MIP) were performed. CT of the abdomen and pelvis was performed with intravenous contrast util izing the same contrast bolus following a short delay. Automated exposure control and iterative recon struction technique were employed. The dose-length product was 1717.75 mGy-cm. COMPARISON: 04/25/2014 FINDINGS: Chest: Good contrast opacification of the pulmonary arteries. There is mild streak and respiratory motion ar tifact which only mildly decreases sensitivity in some of the smaller subsegmental pulmonary arteries . No pulmonary embolism. Mild emphysema with mild dependent atelectasis in both lungs. No pneumonia, pulmonary edema, pleural effusion or pneumothorax. Mild cardiomegaly. Atherosclerotic coronary artery calcifications and change of prior median sternotomy and coronary artery bypass grafting. Thoracic a ronel is normal in caliber with no dissection. No pathologically enlarged thoracic lymphadenopathy. S mall to moderate-sized sliding-type hiatal hernia. Abdomen/pelvis: Liver, gallbladder, spleen, pancreas, bilateral kidneys and left adrenal gland are normal. Interval i ncrease in size of a previously 6 mm, currently 9 mm avidly enhancing right adrenal nodule. There is moderate colonic diverticulosis with a sigmoid and descending colon predominance. There is no adjace nt inflammatory change to suggest diverticulitis. Bladder is normal. Small bilateral fat-containing i nguinal hernias. No free intraperitoneal gas or fluid. No pathologically enlarged abdominal or pelvic lymphadenopathy. IMPRESSION: 1. No pulmonary embolism or other acute cardiopulmonary disease. 2. Enlarging now 9 mm avidly enhancing right adrenal nodule suspicious for pheochromocytoma with diff erential including aneurysm, atypical adenoma or hypervascular metastasis in the appropriate clinical setting. Correlate for signs/symptoms of pheochromocytoma including labile hypertension. Consider fu rther evaluation with urine metanephrines and pre and postcontrast MRI. 3. Mild emphysema. 4. Cardiomegaly. 5. Small to moderate-sized sliding-type hiatal hernia. 6. Diverticulosis. 7. Prostatomegaly. 8 . Small bilateral fat-containing inguinal hernias. Reviewed, dictated and finalized at location A. IMPRESSION: 1. No pulmonary embolism or other acute cardiopulmonary disease. 2. Enlarging now 9 mm avidly enhancing right adrenal nodule suspicious for pheo chromocytoma with differential including aneurysm, atypical adenoma or hypervas cular metastasis in the appropriate clinical setting. Correlate for signs/sympt oms of pheochromocytoma including labile hypertension. Consider further evaluat ion with urine metanephrines and pre and postcontrast MRI. 3. Mild emphysema. 4. Cardiomegaly. 5. Small to moderate-sized sliding-type hiatal hernia. 6. Diverticulosis. 7. Prostatomegaly. 8 . Small bilateral fat-containing inguinal hernias.
--- NOTE | ~2023-06-02 | XR_ITS ---
Clinical Indication: Vomiting AP and lateral views of the chest: Comparison: 04/15/2023 Findings: Probable right basilar nipple shadow. The lungs are otherwise clear, without evidence of fo corey consolidation or pleural effusion. Cardiomediastinal silhouette is stable. Bones and soft tissue s are unremarkable. Impression: Probable right basilar nipple shadow, otherwise clear lungs. Computer repeat exam with nipple markers , as indicated. Reviewed, dictated and finalized at location M. Impression: Probable right basilar nipple shadow, otherwise clear lungs. Computer repeat ex am with nipple markers, as indicated.
[2023-06-02 08:14] LABS: Basophils Percent Auto 0.4 % (0.2-1.2); Hematocrit 39.2 % (42.0-52.0); Hemoglobin 13.3 g/dL (14.0-18.0); Immature Granulocyte Absolute 0.11 K/mm3 (0.00-0.031); Immature Granulocyte Percent A 1.1 % (0-0.5); Lymphocytes Absolute Auto 0.64 K/mm3 (0.9-3.2); Lymphocytes Percent Auto 6.7 % (18.3-44.2); Mean Corpuscular HGB Conc 33.9 g/dl (32-36); Mean Corpuscular Volume 88.3 fl (80-100); Mean Platelet Volume 8.6 fl (7.4-10.4); Monocytes Absolute Auto 0.8 K/mm3 (0.1-0.6); Monocytes Percent Auto 7.9 % (2.6-8.5); Neutrophils Absolute Auto 8.1 K/mm3 (1.3-6.7); Neutrophils Percent Auto 83.9 % (45.5-73.1); Platelet Count Result 303 k/mm3 (150-375); Red Blood Count 4.44 M/mm3 (4.6-6.20); Red Cell Distribution Width 13.3 % (11.5-14.5); White Blood Count 9.6 K/mm3 (4.5-10.0)
[2023-06-02 08:21] LABS: Alanine Aminotransferase 24 U/L (6-50); Alkaline Phosphatase 68 U/L (38-126); Anion Gap 7 mmol/L (8-16); Aspartate Amino Transferase 34 U/L (17-59); Bilirubin,Total 0.7 mg/dL (0.2-1.3); Blood Urea Nitrogen 29 mg/dL (9-20); Calcium 9.4 mg/dL (8.4-10.2); Carbon Dioxide 28 mmol/L (22-30); Chloride 97 mmol/L (98-107); Estimated CRCL calculation 63 ml/min; Estimated Glomerular Filt Rate > 60; Glucose 143 mg/dL (65-110); Lipase 62 U/L (23-300); Potassium 3.7 mmol/L (3.4-5.0); Sodium 132 mmol/L (137-145)
--- NOTE | 2023-06-02 09:07 | ED.NAVMDI ---
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 Patient reports he began feeling unwell last night and developed vomiting around 6 PM. He reported having several episodes of emesis, which he reported as dark purple in color. Denied any bright red hematemesis. He has not had any vomiting since early this morning. He denies feeling nauseous currently. Denies abdominal pain currently, but does report pain yesterday which he attributed to constipation. He had not had a bowel movement for approximately 4 days. He received an enema by his last night and did have a large bowel movement. Denied rectal bleeding or melena. Denies any recent fevers. Has had mild cough, denies SOB/CP. Related Data Home Medications Medication Instructions Recorded Confirmed aspirin 81 mg tablet,delayed 81 mg PO DAILY 12/25/20 05/24/23 release (Adult Low Dose Aspirin) cholecalciferol (vitamin D3) 25 25 mcg PO DAILY 03/09/23 05/24/23 mcg (1,000 unit) capsule (Vitamin D3) coQ10 (ubiquinol) 100 mg capsule 100 mg PO DAILY 03/09/23 05/24/23 melatonin 3 mg tablet 6 mg PO HS 03/09/23 05/24/23 Allergies Allergy/AdvReac Type Severity Reaction Status Date / Time lisinopril AdvReac Mild swelling Verified 06/02/23 08:02 ankles simvastatin AdvReac Mild swelling Verified 06/02/23 08:02 ankles amlodipine AdvReac Swelling Verified 06/02/23 08:02 Review of Systems Review of Systems: CONSTITUTIONAL: Denies fever, chills, or sweats. ENT: Denies rhinorrhea, congestion, sore throat. CARDIOVASCULAR: Denies chest pain. RESPIRATORY: See HPI. GASTROINTESTINAL: See HPI. MUSCULOSKELETAL: Denies back pain, joint pain, or myalgia. NEUROLOGIC: Denies headache, numbness, or weakness. 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 failure, with stage 1 through stage 4 chronic kidney disease, or unspecified chronic kidney disease PVD (peripheral vascular disease) Surgical History Surgical History Hx of CABG Family History Family History Father Patient's father is in good health, Onset Age: 74 Hypertension Diabetes mellitus Atrial fibrillation Sibling Patient's brother is in good health, Onset Age: 67 Patient's sister is in good health, Onset Age: 65 Hypertension Malignant neoplasm of prostate Mother Patient's mother is Asthma Son Auditory nerve disease or syndrome Other Family history of cardiovascular disease Social History Social History Social History: Smoking status: Never smoker Second hand tobacco smoke exposure: No Alcohol intake: former Drinks per week: 7 Alcohol use details: SHOTS FOR SLEEP Substance use: never Substance use type: does not use Other substance usage details: takes prescription medications as prescribed Last use: would drink one ounce of ETOH each noc-l
[2023-06-02] MEDS: PANTOPRAZOLE SODIUM IV 40 MG VIAL IV PUSH (09:41)
[2023-06-02] MEDS: SODIUM CHLORIDE 0.9% IV 1,000 ML 999 ML IV CONT (09:42)
[2023-06-02 09:43] LABS: INR 1.1; Prothrombin Time 14.3 Seconds (11.1-14.7)
[2023-06-02 09:44] LABS: Partial Thromboplastin Time 29.8 SECONDS (22.3-36.8)
[2023-06-02 09:48] LABS: D Dimer 1.66 ug/mL (<0.48)
[2023-06-02 09:55] LABS: Appearance Urine Cloudy (Clear); Bacteria Urine None Seen /hpf; Bilirubin Urine Negative (Negative); Blood Urine Negative (Negative); Color Urine Yellow (Yellow); Glucose Urine UA Negative (Negative); Ketones Urine 1+ mg/dL (Negative); Leukocyte Esterase Ur Negative LEU/UL (Negative); Nitrate Urine Negative (Negative); Non Pathogenic Casts 0-2; Protein Urine Negative (Negative); RBC Urine 0-2 /hpf (0-2); Specific Grav Ur 1.015 (1.001-1.035); Squamous Epithelial Cell Urine None seen /hpf (Few); Urobilinogen Urine 0.2 mg/dL (<2.0); WBC Urine 0-5 /hpf; pH Urine 7.5 (5.0-9.0)
[2023-06-02 10:03] LABS: Add Urine Microscopic? YES
== END 2023-06-02 14:28 | disposition home or self-care (01) ==
PROVIDERS: Emergency Medicine; Emergency Provider Physician Assistant; PCP Family Medicine
DX: R11.2 Nausea with vomiting, unspecified (principal); C61 Malignant neoplasm of prostate; E27.9 Disorder of adrenal gland, unspecified; I69.954 Hemiplegia and hemiparesis following unspecified cerebrovascular disease affecting left non-dominant side; I12.9 Hypertensive chronic kidney disease with stage 1 through stage 4 chronic kidney disease, or unspecified chronic kidney disease; N18.31 Chronic kidney disease, stage 3a; I25.10 Atherosclerotic heart disease of native coronary artery without angina pectoris; I73.9 Peripheral vascular disease, unspecified; E03.9 Hypothyroidism, unspecified; Z95.1 Presence of aortocoronary bypass graft; Z86.010 Personal history of colon polyps; Z79.82 Long term (current) use of aspirin; I51.7 Cardiomegaly; J43.9 Emphysema, unspecified; K44.9 Diaphragmatic hernia without obstruction or gangrene; K57.90 Diverticulosis of intestine, part unspecified, without perforation or abscess without bleeding; K40.90 Unilateral inguinal hernia, without obstruction or gangrene, not specified as recurrent
CPT/HCPCS: 36415; 71046; 71275; 74177; 80053; 81001; 83605; 83690; 84443; 85025; 85380; 85610; 85730; 86850; 86900; 86901; 96361; 96374; 99284; C9113; J7030; Q9967

== ENCOUNTER → 2023-06-17 08:02 | Outpatient (CLI) | payer OTHER, SELFPAY ==
--- NOTE | ~2023-06-17 | MR_ITS ---
EXAMINATION: MR abdomen wo/w con DATE: 06/17/2023 09:24 INDICATION: Adrenal gland disorder TECHNIQUE: Magnetic resonance imaging (MRI) of the abdomen was performed without and with 20 mL Multi froilan intravenous contrast. Sequences included coronal and axial T2-weighted SS-FSE, axial FS 2D-FIES TA, coronal and axial dual-echo T1-weighted FSPGR, axial T1-weighted LAVA, and axial STIR FSE. Postco ntrast axial T1-weighted LAVA images were obtained in a time course. Postcontrast coronal T1-weighted LAVA images were obtained. COMPARISON: CT dated 06/02/2023 FINDINGS: Heart size is normal. No pericardial or pleural effusion. Magnetic field artifact associated with med magdalena sternotomy wires suggesting prior coronary artery bypass grafting. Small sliding-type hiatal melisa ia. Liver, gallbladder, spleen, pancreas, left adrenal gland and bilateral kidneys are normal. Again seen is a 9 mm right adrenal nodule which is T2 hyperintense with marked arterial phase enhancement w hich is typical of but not specific for pheochromocytoma. There is no signal dropout on opposed phase imaging to suggest intracellular lipid in the setting of adenoma. Visualized portions of the bowels are unremarkable. No pathologically enlarged abdominal lymphadenopathy. Normal bone marrow signal thr oughout. IMPRESSION: 1. 9 mm right adrenal nodule without signal dropout on opposed phase images to suggest adenoma and wi th prominently high T2 signal and enhancement, both findings typical for but not diagnostic of pheoch romocytoma. Correlate with metanephrine levels. 2. Small sliding-type hiatal hernia. Reviewed, dictated and finalized at location A. IMPRESSION: 1. 9 mm right adrenal nodule without signal dropout on opposed phase images to suggest adenoma and with prominently high T2 signal and enhancement, both findi ngs typical for but not diagnostic of pheochromocytoma. Correlate with metaneph rine levels. 2. Small sliding-type hiatal hernia.
== END ==
PROVIDERS: PCP Family Medicine; Visit Provider Physician Assistant
DX: K44.9 Diaphragmatic hernia without obstruction or gangrene (principal); E27.9 Disorder of adrenal gland, unspecified
CPT/HCPCS: 74183; A9577

== ENCOUNTER 2023-07-14 11:54 | Outpatient (CLI) | payer OTHER, SELFPAY ==
--- NOTE | ~2023-07-14 | PE_ITS ---
EXAMINATION: PET_PETPSMAST_PT DATE: 07/14/2023 14:34 INDICATION: Prostate cancer. TECHNIQUE: 5.340 mCi of piflufolastat F-18 was administered intravenously. Low dose computed tomograp hy (CT) images were acquired from the base of the brain to the proximal thighs for attenuation correc tion and anatomic localization. Automated exposure control was employed. Dose-length product (DLP) wa s 1194 mGy-cm. Positron emission tomography (PET) images were acquired in the same distribution. COMPARISON: CT 06/02/2023, abdomen MRI 06/17/2023 FINDINGS: Head/neck: There are no pathologically enlarged lymph nodes. Chest: The lungs demonstrate mild atelectasis and mild chronic lung disease. No pleural effusion. Car diomegaly is noted. There are coronary artery calcifications. There are changes of coronary artery by pass grafting. No pericardial effusion. There are no pathologically enlarged lymph nodes. Abdomen/pelvis/proximal thighs: The liver, gallbladder, and spleen are normal. There is is a small sl iding hiatal hernia. The pancreas and left adrenal gland are normal. There is a 9 mm mass in right ad renal gland. The kidneys are normal. There is calcified atherosclerosis of the aorta and many of the other arteries. There are bilateral inguinal hernias containing fat. There is diverticulosis of the c olon without evidence of diverticulitis. There are no pathologically enlarged lymph nodes. The prosta te is mildly enlarged. There is increased activity in the prostate on the left with maximum SUV of 26 .9. There is a benign bone island in right ischium. IMPRESSION: 1. Mildly enlarged prostate with increased activity on the left, consistent with primary malignancy. No evidence of metastatic disease. 2. 9 mm right adrenal mass that was hyperenhancing on prior CT suspicious for pheochromocytoma. Reviewed, dictated and finalized at location A. ES AIDE IMPRESSION: 1. Mildly enlarged prostate with increased activity on the left, consistent wit h primary malignancy. No evidence of metastatic disease. 2. 9 mm right adrenal mass that was hyperenhancing on prior CT suspicious for p heochromocytoma.
== END 2023-07-14 11:55 | disposition home or self-care (01) ==
PROVIDERS: PCP Family Medicine; Visit Provider Urology
DX: C61 Malignant neoplasm of prostate (principal); D35.01 Benign neoplasm of right adrenal gland
CPT/HCPCS: 78815; A9595

== ENCOUNTER 2023-11-30 09:44 | Outpatient (CLI) | payer OTHER, SELFPAY ==
--- NOTE | 2023-11-30 | ECHO_ITS ---
Patient Info Name: Casey Frederick Age: 78 years : 1945 Gender: Male Ht: 71 in Wt: 210 lbs BSA: 2.21 m2 HR: 60 bpm BP: 117 / 69 mmHg Heart Rhythm: Sinus Rhythm Technical Quality: Poor Exam Date: 11/30/2023 9:52 AM Exam Location: Echo Lab Patient Status: Outpatient Admit Date: 11/30/2023 Staff Ordering Physician: BERNADETTEENA Barber: Gertrude Farias RDCS Attending Provider: SITA*ENA Exam Type: CA echo dop bubble study w con Study Info Indications - STROKE Complete two-dimentional, color flow and Doppler transthoracic echocardiogram is performed with agitated saline and with contrast to opacify the left ventricle and to improve the delineation of the left ventricle endocardial borders. Contrast/Agitated Saline Contrast/Ag. Saline: Definity Amount: 2.00 ml Administered By: Gertrude Farias RDCS Existing IV Access: No New IV Access: Left Site Condition: IV removed Contrast/Ag. Saline: Agitated Saline Amount: 20.00 ml Existing IV Access: No New IV Access: Left Site Condition: IV removed Summary 1. Left ventricular chamber dimension is normal. 2. Left ventricular systolic function is normal, estimated at 65-70%. 3. There is moderately increased left ventricular wall thickness. 4. The left ventricular diastolic function is grade I diastolic dysfunction. 5. Left atrial chamber dimension is mildly enlarged. 6. There is mild tricuspid valve regurgitation. 7. Intact interatrial septum visualized by color flow and agitated saline imaging. Left Ventricle Left ventricular chamber dimension is normal. Left ventricular systolic function is normal, estimated at 65-70%. There is moderately increased left ventricular wall thickness. The left ventricular diastolic function is grade I diastolic dysfunction. Right Ventricle Right ventricular chamber dimension is normal. Right ventricular systolic function is normal. Left Atria Left atrial chamber dimension is mildly enlarged. Right Atria Right atrial chamber dimension is normal. Atrial Septum Intact interatrial septum visualized by color flow and agitated saline imaging. Aortic Valve The aortic valve is trileaflet. There is mild aortic valve sclerosis. There is no aortic valve stenosis. There is trace aortic valve regurgitation. Pulmonic Valve The pulmonic valve is normal. There is no pulmonic valve stenosis. There is trace pulmonic regurgitation. Mitral Valve The mitral valve has normal leaflets. There is no mitral valve stenosis. There is trace mitral valve regurgitation. Tricuspid Valve The tricuspid valve leaflets are normal. There is no significant tricuspid valve stenosis. There is mild tricuspid valve regurgitation. No pulmonary hypertension, estimated pulmonary arterial systolic pressure is 33 mmHg. Pericardium/Pleural The pericardium appears normal. There is no pericardial effusion. Inferior Vena Cava Normal inferior vena cava with >50% collapse upon inspiration consistent with normal right atrial pressure, 10 mmHg. Aorta The aortic root size at the sinus of Valsalva is normal. Left Ventricular Outflow Tract Name Value Normal LVOT 2D LVOT Diameter 2.0 cm
[2023-11-30] MEDS: PERFLUTREN LIPID MICROSPHERES 1.5 ML VIAL DILUTED TO 10 ML TOTAL VOLUME IV PUSH (11:15)
--- NOTE | 2023-11-30 11:44 | IVDEFINITY ---
Prior to administration of IV Definity the patient was educated on the risks and benefits of the imaging enhancing agent including potential adverse side effects. The patient verbalized understanding. Allergies were verified. No exclusion criteria were identified and at least one of the following inclusion criteria were met: 1) physician request, 2) patient technically difficult to image (per the [place] [employer] guidelines of two or more segments not discernable within the apical view), or 3) questionable left ventricular function. ?
== END 2023-11-30 09:45 | disposition home or self-care (01) ==
LOC: ANHCARD 09:45
PROVIDERS: PCP Family Medicine
DX: I63.50 Cerebral infarction due to unspecified occlusion or stenosis of unspecified cerebral artery (principal); I51.89 Other ill-defined heart diseases; I36.1 Nonrheumatic tricuspid (valve) insufficiency; I51.7 Cardiomegaly
CPT/HCPCS: 96375; C8929; Q9957